=== PATIENT | male | born 1935 | race Caucasian/White ===

== ENCOUNTER → 2016-10-31 | Outpatient (CLI) | payer MEDICARE, OTHER ==
[~2016-10-31] MED LIST: CLOB-49 EX; CLOB0.77 EX; CLOB5CR TOP; FLOM5CAP PO; NEUR100C PO; OMEP20CA3 PO
== END ==
LOC: M WUC 09:20
PROVIDERS: ATTEND Radiology Radiation Oncology
DX: C61 Malignant neoplasm of prostate (principal); I25.10 Atherosclerotic heart disease of native coronary artery without angina pectoris; E78.5 Hyperlipidemia, unspecified; R42 Dizziness and giddiness

== ENCOUNTER → 2016-10-31 | Outpatient (CLI) | payer MEDICARE, OTHER | LOC: M WUC 09:11 | PROVIDERS: ATTEND Internal Medicine Cardiovascular Disease | DX: I25.10 Atherosclerotic heart disease of native coronary artery without angina pectoris (principal); E78.5 Hyperlipidemia, unspecified; R42 Dizziness and giddiness ==

== ENCOUNTER → 2017-02-23 | Day surgery (SDC) | payer MEDICARE, OTHER ==
[~2017-02-23] VITALS: Ht 175.3 cm; Wt 101.2 kg
[~2017-02-23] MED LIST changes: +ASPI1TAB PO; +ATOR1TAB19 PO; +CARV6.25 PO; +MIDAZOLAM INJ 2 MG/2 ML VIAL (J2250) As Ordered ONE; +MYRB50TA PO; +SUCR1TA PO; +fentaNYL 100 MCG/2 ML INJECTION (J3010) As Ordered ONE
[2017-02-23] MEDS: CEFUROXIME 1MG/0.1ML INTRACAMERAL INJ As Ordered ONE (06:18)
[2017-02-23] MEDS: PROPARACAINE 0.5% OPHTH SOL 15ML OS ONE (07:55)
[2017-02-23] MEDS: PHENYLEPHRINE 2.5% OPHTH SOL 2ML OS ONE (08:00)
[2017-02-23] MEDS: TROPICAMIDE 1% OPHTH SOLN 2ML OS ONE (08:05)
[2017-02-23] MEDS: OFLOXACIN 0.3 % (OCUFLOX) OPTH SOL 5ML OS ONE (08:10)
[2017-02-23] MEDS: LR 500 ML IV ONE (08:18)
[2017-02-23] MEDS: LIDOCAINE 4% INJ 5 ML AMP As Ordered ONE (09:06)
[2017-02-23] MEDS: POVIDONE-IODINE 5% OPHTH PREP SOL 30ML As Ordered ONE (09:08)
[2017-02-23] MEDS: ACETYLCHOLINE OPHTH SOLN 1% 2ML (MIOCHOL-E) As Ordered ONE (09:08)
[2017-02-23] MEDS: BALANCED SALT IRRIGATION SOLUTION 500ML BAG (FOR OR EYE MACHINE) As Ordered ONE (09:08)
[2017-02-23] MEDS: DUOVISC (0.50ML VISCOAT/0.55ML PROVISC) OPHTH KIT As Ordered ONE (09:09)
[2017-02-23] MEDS: LIDOCAINE 0.75%/EPINEPHRINE 0.025% IN BSS 1ML SYR INTRACAMERAL (OR ONLY) As Ordered ONE (09:09)
[2017-02-23 10:05] VITALS: BP 157/74
--- NOTE | 2017-02-24 22:47 | RO ---
DATE OF PROCEDURE: 02/23/2017 PREOPERATIVE DIAGNOSIS: Visually significant nuclear sclerotic cataract, left eye. POSTOPERATIVE DIAGNOSIS: Visually significant nuclear sclerotic cataract, left eye. PROCEDURE: Cataract extraction with use of phacoemulsification, and placement of intraocular lens, AU00T0, 20.5 diopters, left eye. SURGEON: Shekhar Mahan DO DAIRY EQUIPMENT MECHANIC: ANESTHESIA: Local with monitored anesthesia care (MAC). COMPLICATIONS: None. POSTOPERATIVE CONDITION: Stable. INDICATION FOR SURGERY: Blurred vision left eye affecting patient's activities of daily living. DESCRIPTION OF PROCEDURE: The patient was seen in the preoperative area and properly identified. The correct operative eye was identified and marked. Attention was turned to that eye. The patient received topical antibiotics in the preoperative area. The patient then received topical dilating drops consisting of Tropicamide and Phenylephrine. The patient was then transferred to the operating room. The correct side was re-identified. The patient received topical anesthetics and antibiotics on the surface of the eye. The eye was prepped and draped in a sterile fashion. The upper and lower eyelids were isolated with Tegaderm tape, and the lids were held open with an adjustable speculum. Using a sideport blade, a paracentesis incision was made. Intraocular preservative-free lidocaine was then injected into the anterior chamber. Viscoelastic was then injected into the anterior chamber through the paracentesis. Using a 2.6 mm sharp-tipped keratome, the anterior chamber was entered via a temporal clear corneal incision. A continuous curvilinear capsulorrhexis was created with the aid of a 26g cystotome and Utrata forceps. Hydrodissection was performed with balanced salt solution (BSS) on a blunt cannula until the nucleus was freely mobile. The crystalline lens was phacoemulsified and aspirated. Additional cohesive viscoelastic was placed into the capsular bag to deepen it. An AU00T0, 20.5 diopter lens was placed into the capsular bag and confirmed by visualizing the continuous curvilinear capsulorrhexis. Additional irrigation and aspiration was used to remove cortical material and remaining viscoelastic. The clear corneal incision was hydrated with BSS on a blunt cannula. The lens was well positioned. The incisions were then tested for leaks and found to be negative. The eye was then palpated for appropriate pressure and adjusted accordingly with BSS. The eyelid speculum was carefully removed. A shield was placed over the eye. The patient tolerated the procedure well and was discharged to the recovery unit in a stable condition. OLYA
== END | disposition home or self-care (01) ==
LOC: M SDC 07:28
PROVIDERS: ATTEND Ophthalmology
DX: H25.12 Age-related nuclear cataract, left eye (principal); R07.9 Chest pain, unspecified; E78.5 Hyperlipidemia, unspecified; K82.9 Disease of gallbladder, unspecified; K44.9 Diaphragmatic hernia without obstruction or gangrene; K21.9 Gastro-esophageal reflux disease without esophagitis; R29.898 Other symptoms and signs involving the musculoskeletal system; M12.9 Arthropathy, unspecified; M54.9 Dorsalgia, unspecified; H91.91 Unspecified hearing loss, right ear; R06.83 Snoring; R06.09 Other forms of dyspnea; C61 Malignant neoplasm of prostate; K57.30 Diverticulosis of large intestine without perforation or abscess without bleeding; I25.10 Atherosclerotic heart disease of native coronary artery without angina pectoris; K63.5 Polyp of colon; Z88.0 Allergy status to penicillin; Z88.2 Allergy status to sulfonamides; Z79.899 Other long term (current) drug therapy; Z79.82 Long term (current) use of aspirin; Z92.3 Personal history of irradiation
CPT/HCPCS: 66984; J2250; J3010; V2632

== ENCOUNTER → 2017-03-27 | Outpatient (REF) | payer MEDICARE, OTHER ==
[~2017-03-27] MED LIST changes: -MIDAZOLAM INJ 2 MG/2 ML VIAL (J2250) As Ordered ONE; -fentaNYL 100 MCG/2 ML INJECTION (J3010) As Ordered ONE
== END ==
LOC: M LAB REF 17:42
PROVIDERS: ATTEND Surgery
DX: L57.8 Other skin changes due to chronic exposure to nonionizing radiation (principal)

== ENCOUNTER 2017-03-30 11:15 | Day surgery (SDC) | payer MEDICARE, OTHER ==
[~2017-03-30 11:15] MED LIST changes: +ACETYLCHOLINE OPHTH SOLN 1% 2ML (MIOCHOL-E) As Ordered ONE; +BALANCED SALT IRRIGATION SOLUTION 500ML BAG (FOR OR EYE MACHINE) As Ordered ONE; +DUOVISC (0.50ML VISCOAT/0.55ML PROVISC) OPHTH KIT As Ordered ONE; +LIDOCAINE 0.75%/EPINEPHRINE 0.025% IN BSS 1ML SYR INTRACAMERAL (OR ONLY) As Ordered ONE; +MIDAZOLAM INJ 2 MG/2 ML VIAL (J2250) As Ordered ONE; +OFLOXACIN 0.3 % (OCUFLOX) OPTH SOL 5ML OD ONE; +PHENYLEPHRINE 2.5% OPHTH SOL 2ML OD ONE; +POVIDONE-IODINE 5% OPHTH PREP SOL 30ML As Ordered ONE; +PROPARACAINE 0.5% OPHTH SOL 15ML OD ONE; +TROPICAMIDE 1% OPHTH SOLN 2ML OD ONE; +fentaNYL 100 MCG/2 ML INJECTION (J3010) As Ordered ONE
[2017-03-30] MEDS ORDERED: LR 1,000 ML IV SCH (11:30)
[2017-03-30] MEDS ORDERED: hydrALAZINE INJ 20 MG/ML VIAL As Ordered ONE (13:34)
[2017-03-30 13:59] VITALS: BP 159/77
[2017-03-30] MEDS ORDERED: CEFUROXIME 1MG/0.1ML INTRACAMERAL INJ As Ordered ONE (14:28)
--- NOTE | 2017-03-31 07:40 | RO ---
DATE OF PROCEDURE: 03/30/2017 PREOPERATIVE DIAGNOSIS: Visually significant nuclear sclerotic cataract right eye. POSTOPERATIVE DIAGNOSIS: Visually significant nuclear sclerotic cataract right eye. PROCEDURE: Cataract extraction with use of phacoemulsification, and placement of intraocular lens, AU00T0, 20.0 diopter. SURGEON: Shekhar Mahan DO TRANSFORMATION MANAGER: ANESTHESIA: Local with monitored anesthesia care (MAC). COMPLICATIONS: None. POSTOPERATIVE CONDITION: Stable. INDICATION FOR SURGERY: Blurred vision right eye affecting patient's activities of daily living. DESCRIPTION OF PROCEDURE: The patient was seen in the preoperative area and properly identified. The correct operative eye was identified and marked. Attention was turned to that eye. The patient received topical antibiotics in the preoperative area. The patient then received topical dilating drops consisting of Tropicamide and Phenylephrine. The patient was then transferred to the operating room. The correct side was re-identified. The patient received topical anesthetics and antibiotics on the surface of the eye. The eye was prepped and draped in a sterile fashion. The upper and lower eyelids were isolated with Tegaderm tape, and the lids were held open with an adjustable speculum. Using a sideport blade, a paracentesis incision was made. Intraocular preservative-free lidocaine was then injected into the anterior chamber. Viscoelastic was then injected into the anterior chamber through the paracentesis. Using a 2.65 mm sharp-tipped keratome, the anterior chamber was entered via a temporal clear corneal incision. A continuous curvilinear capsulorrhexis was created with the aid of a 26g cystotome and utrata forceps. Hydrodissection was performed with balanced salt solution (BSS) on a blunt cannula until the nucleus was freely mobile. The crystalline lens was phacoemulsified and aspirated. Additional cohesive viscoelastic was placed into the capsular bag to deepen it. An AU00T0, 20.0 diopter lens was placed into the capsular bag and confirmed by visualizing the continuous curvilinear capsulorrhexis. Additional irrigation and aspiration was used to remove cortical material and remaining viscoelastic. The clear corneal incision was hydrated with BSS on a blunt cannula. The lens was well positioned. The incisions were then tested for leaks and found to be negative. The eye was then palpated for appropriate pressure and adjusted accordingly with BSS. The eyelid speculum was carefully removed. A shield was placed over the eye. The patient tolerated the procedure well and was discharged to the recovery unit in a stable condition. OLYA
== END 2017-03-30 14:26 | disposition home or self-care (01) ==
LOC: M SDC 11:15
PROVIDERS: ATTEND Ophthalmology
DX: H25.11 Age-related nuclear cataract, right eye (principal); I10 Essential (primary) hypertension; E78.5 Hyperlipidemia, unspecified; K21.9 Gastro-esophageal reflux disease without esophagitis; K44.9 Diaphragmatic hernia without obstruction or gangrene; Z92.3 Personal history of irradiation; Z85.46 Personal history of malignant neoplasm of prostate; Z88.0 Allergy status to penicillin; Z88.2 Allergy status to sulfonamides; Z79.82 Long term (current) use of aspirin; Z79.899 Other long term (current) drug therapy
CPT/HCPCS: 66984; J2250; J3010; V2632

== ENCOUNTER → 2017-11-20 | Outpatient (CLI) | payer MEDICARE, OTHER ==
[2017-11-20 19:27] LABS: PROSTATIC SPECIFIC AG MONITOR 0.38 NG/ML (< 4.0)
== END ==
LOC: M WUC 13:28
DX: C61 Malignant neoplasm of prostate (principal)
CPT/HCPCS: 84153

== ENCOUNTER → 2017-12-01 | Outpatient (CLI) | payer MEDICARE, OTHER | LOC: M ONCR 12:54 | DX: C61 Malignant neoplasm of prostate (principal) | CPT/HCPCS: G0463 ==

== ENCOUNTER → 2018-03-06 | Outpatient (CLI) | payer MEDICARE, OTHER ==
[2018-03-06 13:18] LABS: BASO % 0.7 % (0.0-1.0); EOS # 0.1 10^3/uL (0.0-0.50); EOS % 2.2 % (0.0-3.0); HEMATOCRIT 38.6 % (42.0-52.0); HEMOGLOBIN 12.5 g/dl (13.5-17.5); IMMATURE GRANULOCYTE % 0.4 % (0-3.0); LYMPH # 1.7 10^3/uL (1.5-4.5); LYMPH % 30.5 % (24.0-44.0); MEAN CORPUSCULAR HEMOGLOBIN 28.7 pg (27.0-33.0); MEAN CORPUSCULAR HGB CONC 32.4 g/dl (32.0-36.5); MEAN CORPUSCULAR VOLUME 88.5 fl (80.0-96.0); MONO # 0.6 10^3/uL (0.0-0.8); MONO % 9.9 % (0.0-5.0); NEUTROPHILS # 3.1 10^3/uL (1.8-7.7); NEUTROPHILS % 56.3 % (36.0-66.0); PLATELET COUNT, AUTOMATED 239 10^3/uL (150-450); RED BLOOD COUNT 4.36 10^6/uL (4.30-6.10); RED CELL DISTRIBUTION WIDTH 13.7 % (11.5-14.5); WHITE BLOOD COUNT 5.6 10^3/uL (4.0-10.0)
[2018-03-06 13:37] LABS: ALBUMIN 3.5 GM/DL (3.2-5.2); ALBUMIN/GLOBULIN RATIO 1.03 (1.00-1.93); ALKALINE PHOSPHATASE 22 U/L (45-117); ALT/SGPT 20 U/L (12-78); ANION GAP 8 MEQ/L (8-16); AST/SGOT 12 U/L (7-37); BILIRUBIN,TOTAL 0.5 MG/DL (0.2-1.0); BLOOD UREA NITROGEN 19 MG/DL (7-18); CALCIUM LEVEL 8.7 MG/DL (8.8-10.2); CARBON DIOXIDE LEVEL 27 MEQ/L (21-32); CHLORIDE LEVEL 104 MEQ/L (98-107); CHOLESTEROL LEVEL 122 MG/DL (<200); CHOLESTEROL RISK RATIO 2.595 (<5); CREATININE FOR GFR 1.22 MG/DL (0.70-1.30); FERRITIN 14 NG/ML (26-388); GLOMERULAR FILTRATION RATE > 60.0 (>35); GLUCOSE, FASTING 89 MG/DL (70-100); HDL CHOLESTEROL 47 MG/DL (>40); IRON (FE) 62 UG/DL (65-175); MAGNESIUM LEVEL 2.1 MG/DL (1.8-2.4); NON-HDL-C 75 MG/DL; PERCENT SATURATION 19.8 % (19.7-50.0); POTASSIUM SERUM 4.2 MEQ/L (3.5-5.1); SODIUM LEVEL 139 MEQ/L (136-145); TOTAL IRON BINDING CAPACITY 313 UG/DL (250-450); TOTAL PROTEIN 6.9 GM/DL (6.4-8.2); TRIGLYCERIDES LEVEL 55 MG/DL (<150)
[2018-03-06 13:58] LABS: FOLATE 10.8 NG/ML; VITAMIN B12 LEVEL 370 PG/ML
== END ==
LOC: M WUC 10:11
DX: D64.9 Anemia, unspecified (principal); I25.10 Atherosclerotic heart disease of native coronary artery without angina pectoris; K57.30 Diverticulosis of large intestine without perforation or abscess without bleeding; R42 Dizziness and giddiness; E78.5 Hyperlipidemia, unspecified; E87.1 Hypo-osmolality and hyponatremia
CPT/HCPCS: 82746

== ENCOUNTER → 2018-11-26 | Outpatient (CLI) | payer MEDICARE, OTHER ==
[~2018-11-26] MED LIST changes: -ACETYLCHOLINE OPHTH SOLN 1% 2ML (MIOCHOL-E) As Ordered ONE; -ASPI1TAB PO; +ASPI81TA26 PO; -BALANCED SALT IRRIGATION SOLUTION 500ML BAG (FOR OR EYE MACHINE) As Ordered ONE; -DUOVISC (0.50ML VISCOAT/0.55ML PROVISC) OPHTH KIT As Ordered ONE; +FLOM0.4C39 PO; -FLOM5CAP PO; -LIDOCAINE 0.75%/EPINEPHRINE 0.025% IN BSS 1ML SYR INTRACAMERAL (OR ONLY) As Ordered ONE; -MIDAZOLAM INJ 2 MG/2 ML VIAL (J2250) As Ordered ONE; -OFLOXACIN 0.3 % (OCUFLOX) OPTH SOL 5ML OD ONE; -PHENYLEPHRINE 2.5% OPHTH SOL 2ML OD ONE; -POVIDONE-IODINE 5% OPHTH PREP SOL 30ML As Ordered ONE; -PROPARACAINE 0.5% OPHTH SOL 15ML OD ONE; -TROPICAMIDE 1% OPHTH SOLN 2ML OD ONE; -fentaNYL 100 MCG/2 ML INJECTION (J3010) As Ordered ONE
== END ==
LOC: M WUC 13:24
PROVIDERS: ATTEND Radiology Radiation Oncology
DX: C61 Malignant neoplasm of prostate (principal)

== ENCOUNTER → 2018-12-05 | Outpatient (CLI) | payer MEDICARE, OTHER ==
--- NOTE | 2018-12-06 06:48 | RADONC ---
RADIATION ONCOLOGY FOLLOWUP NOTE DATE: 12/05/2018 CHART #: [id number] DIAGNOSIS: Prostate cancer. STAGE: II, [id number]. ECOG PERFORMANCE STATUS: 0. FOLLOWUP NOTE: Mr. Cornelius is a pleasant 83-year-old man with a diagnosis of a stage II adenocarcinoma of the prostate, [place] score 7 (3+4). He presents almost 10 years status post completion of external beam radiotherapy and denies any problems related to his disease or to his treatments. REVIEW OF SYSTEMS: His and he claim that he has severe itching in the groin bilaterally. He has had this issue for several years and he usually puts powder in the groin area and it clears up. He denies that there is any erythema or desquamation in the groin area, but notices itching and some stinging as well. Otherwise he denies nausea, vomiting, diarrhea, dysuria, hematuria or blood per rectum. His energy level is unchanged. He also denies anxiety, depression, headaches, anorexia, weight loss, visual disturbances, chest pain or neurologic issues. PHYSICAL EXAMINATION: Reveals a well-developed, well-nourished male in no acute distress. Lymphatics: No palpable peripheral lymphadenopathy is appreciated. The lungs are clear to auscultation and percussion. Heart: Regular without murmurs. Abdomen: Without evidence of hepatomegaly, masses, deep abdominal tenderness. Extremities: Without cyanosis, clubbing or edema. Examination of the genital area reveals some increased moisture in the groin area and periscrotal area bilaterally, but no signs to suggest any fungal related infection, i.e., no evidence of erythema or focal desquamation. Neurologic: Examination unchanged. IMPRESSION: No clinical evidence of disease. PLAN: He should be followed at this point by his family care physician. We note that his most recent PSA dated 11/27/2018 was only 0.30, which is virtually stable. Thank you for allowing us the opportunity of participation in the joint followup care of this very fine gentleman. cc: MD Digna Thompson,
== END ==
LOC: M ONCR 12:39
PROVIDERS: ATTEND Radiology Radiation Oncology
DX: Z08 Encounter for follow-up examination after completed treatment for malignant neoplasm (principal); Z92.3 Personal history of irradiation; Z85.46 Personal history of malignant neoplasm of prostate

== ENCOUNTER → 2021-01-13 | Outpatient (CLI) | payer MEDICARE, OTHER, BC ==
[~2021-01-13] MED LIST changes: +OMEP1CAP73 PO; -OMEP20CA3 PO
== END ==
LOC: M WUC 14:23
PROVIDERS: ATTEND Nurse Practitioner Family
DX: Z85.46 Personal history of malignant neoplasm of prostate (principal)
CPT/HCPCS: 36415; 51798; 84153; G0463

== ENCOUNTER 2021-12-12 11:40 | Emergency (ER) | payer MEDICARE, BC ==
[~2021-12-12] VITALS: Ht 175.3 cm; Wt 99.0 kg
[~2021-12-12 11:40] MED LIST changes: -CLOB0.77 EX; +CLOB1SPR EX
[2021-12-12 13:24] LABS: BASO % 0.6 % (0.0-1.0); EOS # 0.2 10^3/uL (0.0-0.5); EOS % 2.6 % (0.0-3.0); HEMATOCRIT 40.6 % (42.0-52.0); HEMOGLOBIN 13.6 g/dl (13.5-17.5); LYMPH # 1.6 10^3/uL (1.5-5.0); LYMPH % 21.9 % (24.0-44.0); MEAN CORPUSCULAR HEMOGLOBIN 30.4 pg (27.0-33.0); MEAN CORPUSCULAR HGB CONC 33.5 g/dl (32.0-36.5); MEAN CORPUSCULAR VOLUME 90.6 fl (80.0-96.0); MONO # 0.7 10^3/uL (0.0-0.8); MONO % 9.7 % (2.0-8.0); NEUTROPHILS # 4.7 10^3/uL (1.5-8.5); NEUTROPHILS % 65.1 % (36.0-66.0); PLATELET COUNT, AUTOMATED 249 10^3/uL (150-450); RED BLOOD COUNT 4.48 10^6/uL (4.30-6.10); WHITE BLOOD COUNT 7.2 10^3/uL (4.0-10.0)
[2021-12-12 13:41] LABS: INR 0.95; PARTIAL THROMBOPLASTIN TIME 24.1 SECONDS (25.9-37.0); PROTHROMBIN TIME 13.1 SECONDS (12.7-14.5)
[2021-12-12 14:02] LABS: BLOOD UREA NITROGEN 21 MG/DL (7-18); CALCIUM LEVEL 9.6 MG/DL (8.8-10.2); CARBON DIOXIDE LEVEL 26 MEQ/L (21-32); CHLORIDE LEVEL 105 MEQ/L (98-107); CREATININE FOR GFR 1.15 MG/DL (0.70-1.30); FREE T4 1.08 NG/DL (0.76-1.46); GLOMERULAR FILTRATION RATE > 60.0 (>35); GLUCOSE, FASTING 77 MG/DL (70-100); POTASSIUM SERUM 5.9 MEQ/L (3.5-5.1); SODIUM LEVEL 136 MEQ/L (136-145)
[2021-12-12 14:28] LABS: CK-MB VALUE MASS 1.8 NG/ML (<3.6); MB/CK RELATIVE INDEX 1.02 (< OR =4)
[2021-12-12] MEDS ORDERED: TAMS1CAP17 PO (14:30)
[2021-12-12] MEDS ORDERED: CLOP75TA2 PO (14:30)
[2021-12-12 16:26] LABS: CK-MB VALUE MASS 2.8 NG/ML (<3.6); MB/CK RELATIVE INDEX 5.71 (< OR =4)
[2021-12-12] MEDS ORDERED: predniSONE 20 MG TAB PO ONE (18:25)
[2021-12-12] MEDS ORDERED: PRED20TA PO (18:46)
[2021-12-12] MEDS ORDERED: [UNRECOGNIZED DRUG - REMARK] (18:52)
[2021-12-12 19:04] VITALS: BP 189/88
== END 2021-12-12 19:05 | disposition home or self-care (01) ==
LOC: M ED 11:40
DX: H91.92 Unspecified hearing loss, left ear (principal); I44.7 Left bundle-branch block, unspecified; Z86.73 Personal history of transient ischemic attack (TIA), and cerebral infarction without residual deficits; Z88.2 Allergy status to sulfonamides; Z79.899 Other long term (current) drug therapy
CPT/HCPCS: 70450; 70480; 70553; 71045; 80048; 82550; 82553; 84439; 84443; 84484; 85025; 85610; 85652; 85730; 86140; 86780; 86850; 86900; 86901; 93005; 93041; 94760; 99284; J7512

== ENCOUNTER → 2022-09-28 | Outpatient (CLI) | payer MEDICARE, BC ==
[~2022-09-28] MED LIST changes: +CLOP75TA2 PO; +PRED20TA PO; +TAMS1CAP17 PO; +[UNRECOGNIZED DRUG - REMARK]
[2022-09-28 13:18] LABS: BLOOD UREA NITROGEN 19 MG/DL (9-23); CREATININE FOR GFR 1.11 MG/DL (0.70-1.30); GLOMERULAR FILTRATION RATE > 60.0 (>35)
== END ==
LOC: M LAB 11:59
PROVIDERS: ATTEND Surgery
DX: Z01.810 Encounter for preprocedural cardiovascular examination (principal)

== ENCOUNTER → 2022-10-07 | Outpatient (CLI) | payer MEDICARE, BC ==
[~2022-10-07] MED LIST changes: +GASTROGRAFIN SOLUTION 30ML As Ordered ONE; +ISOVUE-370 76% 100ML VIAL As Ordered ONE
== END ==
LOC: M RAD 11:37
PROVIDERS: ATTEND Surgery
DX: R10.84 Generalized abdominal pain (principal); K76.0 Fatty (change of) liver, not elsewhere classified
CPT/HCPCS: 74178; Q9963; Q9967

== ENCOUNTER → 2022-11-01 | Outpatient (CLI) | payer MEDICARE, BC ==
[~2022-11-01] MED LIST changes: +E-Z-GAS II EFFERVESCENT PACKET (SODIUM BICARB./CITRIC ACID/SIMETHICONE) As Ordered ONE; +E-Z-HD 98% w/w 340GM SUSP BTL As Ordered ONE; +E-Z-PAQUE 96% w/w SUSP 176GM BTL As Ordered ONE; -GASTROGRAFIN SOLUTION 30ML As Ordered ONE; -ISOVUE-370 76% 100ML VIAL As Ordered ONE
== END ==
LOC: M RAD 08:57
PROVIDERS: ATTEND Surgery
DX: K80.20 Calculus of gallbladder without cholecystitis without obstruction (principal); K21.9 Gastro-esophageal reflux disease without esophagitis; R10.84 Generalized abdominal pain

== ENCOUNTER 2022-12-15 06:05 | Inpatient (IN) | payer MEDICARE, BC ==
[2022-12-15] VITALS (9 sets, daily range): BP systolic 97–173; BP diastolic 78–99
[~2022-12-15] VITALS: Ht 175.3 cm; Wt 90.7 kg
[~2022-12-15 06:05] MED LIST changes: +CelecoXIB 400 MG CAP PO ONE; -E-Z-GAS II EFFERVESCENT PACKET (SODIUM BICARB./CITRIC ACID/SIMETHICONE) As Ordered ONE; -E-Z-HD 98% w/w 340GM SUSP BTL As Ordered ONE; -E-Z-PAQUE 96% w/w SUSP 176GM BTL As Ordered ONE; +HYDR12.55 PO; +SUCR1SS PO
[2022-12-15] MEDS ORDERED: LR 1,000 ML IV SCH ×2 (06:50→14:55)
[2022-12-15] MEDS ORDERED: LevoFLOXacin IV 750 MG in IV 1 EA IV ONE (07:00)
[2022-12-15] MEDS ORDERED: ACETAMINOPHEN 1000MG 100ML IV BAG As Ordered ONE (07:17)
[2022-12-15] MEDS ORDERED: KETOROLAC 60MG 2ML VIAL As Ordered ONE (07:17)
[2022-12-15] MEDS ORDERED: SUGAMMADEX SODIUM 500 MG/5 ML VIAL (BRIDION) As Ordered ONE (07:17)
[2022-12-15] MEDS ORDERED: propofoL 200 MG/20 ML VIAL As Ordered ONE (07:17)
[2022-12-15] MEDS ORDERED: ONDANSETRON 4MG 2ML VIAL As Ordered ONE (07:17)
[2022-12-15] MEDS ORDERED: LIDOCAINE 2% 100MG/5ML SDV (FOR ANES.) As Ordered ONE (07:17)
[2022-12-15] MEDS ORDERED: ROCURONIUM BROMIDE 50MG/5ML VIAL As Ordered ONE ×3 (07:17→12:07)
[2022-12-15] MEDS ORDERED: fentaNYL 250 MCG/5 ML INJECTION As Ordered ONE (07:18)
[2022-12-15] MEDS ORDERED: LIDOCAINE 1% SDV 30ML VIAL As Ordered ONE (07:25)
[2022-12-15] MEDS ORDERED: BUPIVACAINE HCL 0.25% 30ML VIAL As Ordered ONE (07:26)
[2022-12-15] MEDS ORDERED: HEPARIN SOD (PORCINE) 5000UNITS/ML 1ML VIAL/SYRINGE As Ordered ONE (07:47)
[2022-12-15] MEDS ORDERED: HEPARIN SOD (PORCINE) 5000UNITS/ML 1ML VIAL/SYRINGE SQ ONE (08:05)
[2022-12-15] MEDS ORDERED: LABETALOL 100MG/20ML VIAL As Ordered ONE (08:42)
[2022-12-15] MEDS ORDERED: oxyCODONE 5MG TAB PO PRN (14:55)
[2022-12-15] MEDS ORDERED: ONDANSETRON 4MG 2ML VIAL IV PRN (14:55)
[2022-12-15] MEDS ORDERED: HYDROMORPHONE HCL 0.5 MG/ 0.5 ML SYRINGE IV PRN (14:55)
[2022-12-15] MEDS ORDERED: fentaNYL 100 MCG/2 ML INJECTION IV PRN (14:55)
[2022-12-15] MEDS ORDERED: PROMETHAZINE 25MG/ML 1ML VIAL IV PRN (15:00)
[2022-12-15] MEDS ORDERED: ACETAMINOPHEN TAB 650MG DOSE (2X325MG) PO PRN (15:00)
[2022-12-15] MEDS: LR 1,000 ML IV SCH ×2 (16:44→23:28)
[2022-12-15] MEDS ORDERED: KETOROLAC 30 MG/ML 1ML VIAL IV PRN (17:00)
[2022-12-15] MEDS: ONDANSETRON 4MG 2ML VIAL IV SCH (20:17)
[2022-12-15] MEDS: POLYVINYL ALCOHOL OPHTH SOLN 15ML (LIQUITEARS) OD PRN (20:55)
[2022-12-16] VITALS (7 sets, daily range): BP systolic 125–159; BP diastolic 75–93
[2022-12-16] MEDS: MORPHINE 2 MG/ML 1ML VIAL IV PRN ×2 (00:40→05:33)
[2022-12-16] MEDS: ONDANSETRON 4MG 2ML VIAL IV SCH ×4 (03:31→20:33)
[2022-12-16] MEDS ORDERED: SUCR1TAB56 PO (06:31)
[2022-12-16] MEDS ORDERED: CARV3.12 PO (06:31)
[2022-12-16] MEDS ORDERED: HOME MED LIST COMPLETE! XX SCH (06:35)
[2022-12-16 07:03] LABS: BASO % 0.1 % (0.0-1.0); HEMOGLOBIN 11.2 g/dl (13.5-17.5); LYMPH # 0.8 10^3/uL (1.5-5.0); LYMPH % 7.7 % (24.0-44.0); MEAN CORPUSCULAR HGB CONC 33.9 g/dl (32.0-36.5); MEAN CORPUSCULAR VOLUME 88.5 fl (80.0-96.0); MONO # 0.9 10^3/uL (0.0-0.8); MONO % 9.2 % (2.0-8.0); NEUTROPHILS # 8.2 10^3/uL (1.5-8.5); NEUTROPHILS % 82.6 % (36.0-66.0); PLATELET COUNT, AUTOMATED 221 10^3/uL (150-450); RED BLOOD COUNT 3.73 10^6/uL (4.30-6.10); WHITE BLOOD COUNT 9.9 10^3/uL (4.0-10.0)
[2022-12-16 07:28] LABS: BLOOD UREA NITROGEN 31 MG/DL (9-23); CALCIUM LEVEL 8.1 MG/DL (8.3-10.6); CARBON DIOXIDE LEVEL 27 MMOL/L (20-31); CHLORIDE LEVEL 99 MMOL/L (98-107); CREATININE FOR GFR 1.12 MG/DL (0.70-1.30); GLOMERULAR FILTRATION RATE > 60.0 (>35); GLUCOSE, FASTING 123 MG/DL (74-106); POTASSIUM SERUM 3.9 MMOL/L (3.5-5.1); SODIUM LEVEL 133 MMOL/L (136-145)
[2022-12-16] MEDS: hydroCHLOROthiazide 12.5 MG CAPSULE PO SCH (08:15)
[2022-12-16] MEDS: ENOXAPARIN 40MG/0.4ML SYRINGE (J1650 PER 10MG) SC SCH (08:16)
[2022-12-16] MEDS: PANTOPRAZOLE 40MG VIAL IV SCH (08:16)
[2022-12-16] MEDS ORDERED: E-Z-PAQUE 96% w/w SUSP 176GM BTL As Ordered ONE (08:55)
[2022-12-16] MEDS ORDERED: E-Z-GAS II EFFERVESCENT PACKET (SODIUM BICARB./CITRIC ACID/SIMETHICONE) As Ordered ONE (08:55)
[2022-12-16] MEDS ORDERED: E-Z-HD 98% w/w 340GM SUSP BTL As Ordered ONE (08:55)
[2022-12-16] MEDS ORDERED: PERCOCET 5MG/325MG TAB PO PRN (13:50)
[2022-12-16] MEDS: ALVIMOPAN 12 MG CAPSULE (ENTEREG) PO SCH ×2 (14:01→20:33)
[2022-12-16] MEDS: LR 1,000 ML IV SCH (16:00)
[2022-12-16] MEDS: PERCOCET 5MG/325MG TAB PO PRN (20:32)
[2022-12-16] MEDS: CARVedilol 3.125 MG TAB PO SCH (20:33)
[2022-12-16] MEDS: TAMSULOSIN 0.4 MG CAP PO SCH (20:33)
[2022-12-16] MEDS: ATORVASTATIN 10 MG TAB PO SCH (20:33)
[2022-12-16] MEDS: SODIUM CHLORIDE NASAL 0.65% SPRAY BTL (OCEAN) PRN (22:47)
[2022-12-17] MEDS: ONDANSETRON 4MG 2ML VIAL IV SCH ×3 (03:32→15:22)
[2022-12-17] MEDS: PERCOCET 5MG/325MG TAB PO PRN ×4 (03:33→20:20)
[2022-12-17 06:00] VITALS: BP 143/83
[2022-12-17] MEDS: hydroCHLOROthiazide 12.5 MG CAPSULE PO SCH (08:13)
[2022-12-17] MEDS: ALVIMOPAN 12 MG CAPSULE (ENTEREG) PO SCH ×2 (08:13→20:17)
[2022-12-17] MEDS: PANTOPRAZOLE 40MG VIAL IV SCH (08:13)
[2022-12-17] MEDS: ENOXAPARIN 40MG/0.4ML SYRINGE (J1650 PER 10MG) SC SCH (08:14)
[2022-12-17 14:42] VITALS: BP 146/79
[2022-12-17 20:16] VITALS: BP 164/80
[2022-12-17] MEDS: TAMSULOSIN 0.4 MG CAP PO SCH (20:17)
[2022-12-17] MEDS: ATORVASTATIN 10 MG TAB PO SCH (20:17)
[2022-12-17] MEDS: CARVedilol 3.125 MG TAB PO SCH (20:19)
[2022-12-17] MEDS: SODIUM CHLORIDE NASAL 0.65% SPRAY BTL (OCEAN) PRN (20:21)
[2022-12-17] MEDS: POLYVINYL ALCOHOL OPHTH SOLN 15ML (LIQUITEARS) OD PRN (20:24)
[2022-12-18 05:59] VITALS: BP 136/63
[2022-12-18] MEDS: PANTOPRAZOLE 40MG VIAL IV SCH (08:42)
[2022-12-18] MEDS: ALVIMOPAN 12 MG CAPSULE (ENTEREG) PO SCH ×2 (08:42→20:39)
[2022-12-18] MEDS: ENOXAPARIN 40MG/0.4ML SYRINGE (J1650 PER 10MG) SC SCH (08:42)
[2022-12-18] MEDS: hydroCHLOROthiazide 12.5 MG CAPSULE PO SCH (08:42)
[2022-12-18] MEDS: SENOKOT S TAB PO SCH ×2 (08:42→20:39)
[2022-12-18] MEDS: PERCOCET 5MG/325MG TAB PO PRN ×2 (13:20→20:40)
[2022-12-18 14:00] VITALS: BP 123/67
[2022-12-18] MEDS: ATORVASTATIN 10 MG TAB PO SCH (20:39)
[2022-12-18] MEDS: TAMSULOSIN 0.4 MG CAP PO SCH (20:39)
[2022-12-18] MEDS: CARVedilol 3.125 MG TAB PO SCH (20:42)
[2022-12-18 22:00] VITALS: BP 139/77
[2022-12-19 05:28] VITALS: BP 140/66
[2022-12-19] MEDS: MIRALAX *UNIT DOSE* 17GM PACKET PO SCH (08:53)
[2022-12-19] MEDS: PANTOPRAZOLE 40MG VIAL IV SCH (08:53)
[2022-12-19] MEDS: SENOKOT S TAB PO SCH ×2 (08:53→21:01)
[2022-12-19] MEDS: ENOXAPARIN 40MG/0.4ML SYRINGE (J1650 PER 10MG) SC SCH (08:53)
[2022-12-19] MEDS: hydroCHLOROthiazide 12.5 MG CAPSULE PO SCH (08:53)
[2022-12-19] MEDS: ALVIMOPAN 12 MG CAPSULE (ENTEREG) PO SCH ×2 (09:05→21:01)
[2022-12-19] MEDS: PERCOCET 5MG/325MG TAB PO PRN ×2 (09:06→21:10)
[2022-12-19 14:00] VITALS: BP 139/71
[2022-12-19 20:00] VITALS: BP 148/78
[2022-12-19 21:01] VITALS: BP 159/95
[2022-12-19] MEDS: CARVedilol 3.125 MG TAB PO SCH (21:01)
[2022-12-19] MEDS: TAMSULOSIN 0.4 MG CAP PO SCH (21:01)
[2022-12-19] MEDS: ATORVASTATIN 10 MG TAB PO SCH (21:01)
[2022-12-20 05:41] VITALS: BP 100/67
[2022-12-20] MEDS ORDERED: PANTOPRAZOLE 40MG TAB (PROTONIX) PO SCH (09:00)
[2022-12-20] MEDS: ENOXAPARIN 40MG/0.4ML SYRINGE (J1650 PER 10MG) SC SCH (09:44)
[2022-12-20] MEDS: ALVIMOPAN 12 MG CAPSULE (ENTEREG) PO SCH (09:44)
[2022-12-20] MEDS: MIRALAX *UNIT DOSE* 17GM PACKET PO SCH (09:44)
[2022-12-20] MEDS: SENOKOT S TAB PO SCH (09:44)
[2022-12-20] MEDS: hydroCHLOROthiazide 12.5 MG CAPSULE PO SCH (09:47)
[2022-12-20] MEDS: POLYVINYL ALCOHOL OPHTH SOLN 15ML (LIQUITEARS) OD PRN (09:52)
[2022-12-20] MEDS ORDERED: PERCOCET PO (12:50)
== END 2022-12-20 13:33 | disposition home or self-care (01) | DRG 326 ==
LOC: M OR 06:05 → M MSPAV 16:18
PROVIDERS: ADMIT Surgery; ATTEND Surgery
PROC: 0DV44ZZ Restriction of Esophagogastric Junction, Percutaneous Endoscopic Approach (ICD-10-PCS; 2022-12-15)
PROC: 0DS64ZZ Reposition Stomach, Percutaneous Endoscopic Approach (ICD-10-PCS; 2022-12-15)
PROC: 8E0W4CZ Robotic Assisted Procedure of Trunk Region, Percutaneous Endoscopic Approach (ICD-10-PCS; 2022-12-15)
PROC: 0DU Gastrointestinal System, Supplement (ICD-10-PCS; principal; 2022-12-15 07:30)
DX: K44.0 Diaphragmatic hernia with obstruction, without gangrene (principal); K56.2 Volvulus; R16.0 Hepatomegaly, not elsewhere classified; Z79.899 Other long term (current) drug therapy; I25.10 Atherosclerotic heart disease of native coronary artery without angina pectoris; D50.9 Iron deficiency anemia, unspecified; I44.7 Left bundle-branch block, unspecified; E78.49 Other hyperlipidemia; Z86.73 Personal history of transient ischemic attack (TIA), and cerebral infarction without residual deficits; Z95.2 Presence of prosthetic heart valve; K21.9 Gastro-esophageal reflux disease without esophagitis; I10 Essential (primary) hypertension; Z85.46 Personal history of malignant neoplasm of prostate; Z92.3 Personal history of irradiation

== ENCOUNTER 2022-12-31 20:45 | Inpatient (IN) | payer MEDICARE, BC ==
[~2022-12-31] VITALS: Ht 172.7 cm; Wt 89.2 kg
[~2022-12-31 20:45] MED LIST changes: +CARV3.12 PO; -CelecoXIB 400 MG CAP PO ONE; +PERCOCET PO; +SUCR1TAB56 PO
[2022-12-31 21:43] LABS: BASO % 0.5 % (0.0-1.0); EOS # 0.1 10^3/uL (0.0-0.5); EOS % 0.8 % (0.0-3.0); HEMATOCRIT 31.5 % (42.0-52.0); LYMPH # 1.8 10^3/uL (1.5-5.0); LYMPH % 23.9 % (24.0-44.0); MEAN CORPUSCULAR HGB CONC 34.9 g/dl (32.0-36.5); MEAN CORPUSCULAR VOLUME 85.8 fl (80.0-96.0); MONO # 0.7 10^3/uL (0.0-0.8); MONO % 9.8 % (2.0-8.0); NEUTROPHILS # 4.8 10^3/uL (1.5-8.5); NEUTROPHILS % 64.6 % (36.0-66.0); PLATELET COUNT, AUTOMATED 496 10^3/uL (150-450); RED BLOOD COUNT 3.67 10^6/uL (4.30-6.10); WHITE BLOOD COUNT 7.4 10^3/uL (4.0-10.0)
[2022-12-31 21:56] LABS: INR 1.01; PROTHROMBIN TIME 13.5 SECONDS (12.5-14.5)
[2022-12-31 21:57] LABS: PARTIAL THROMBOPLASTIN TIME 30.3 SECONDS (24.8-34.2)
[2022-12-31 22:09] LABS: LIPASE 28 U/L (12-53)
[2022-12-31 22:12] LABS: ALBUMIN 3.5 G/DL (3.2-5.2); ALKALINE PHOSPHATASE 24 U/L (46-116); ALT/SGPT 21 U/L (7.0-40); AST/SGOT 25 U/L (<34); BILIRUBIN,DIRECT 0.5 MG/DL (<0.4); BILIRUBIN,TOTAL 1.1 MG/DL (0.3-1.2); BLOOD UREA NITROGEN 19 MG/DL (9-23); CALCIUM LEVEL 9.2 MG/DL (8.3-10.6); CARBON DIOXIDE LEVEL 22 MMOL/L (20-31); CHLORIDE LEVEL 88 MMOL/L (98-107); CK-MB VALUE MASS 1.3 NG/ML (<3.6); CREATININE FOR GFR 0.89 MG/DL (0.70-1.30); GLOMERULAR FILTRATION RATE > 60.0 (>35); GLUCOSE, FASTING 80 MG/DL (74-106); POTASSIUM SERUM 3.5 MMOL/L (3.5-5.1); SODIUM LEVEL 122 MMOL/L (136-145); TOTAL PROTEIN 6.6 G/DL (5.7-8.2)
[2022-12-31 22:13] LABS: CPK CREATINE PHOSPHOKINASE 43 U/L (46-171); MB/CK RELATIVE INDEX 3.02 (< OR =4)
[2022-12-31 23:29] LABS: OSMOLALITY SERUM 255 MOSM/KG (280-301)
[2022-12-31 23:36] LABS: FREE T4 1.46 NG/DL (0.89-1.76); THYROID STIMULATING HORMONE 2.895 uIU/ML (0.55-4.78)
[2022-12-31] MEDS ORDERED: NS 500 ML IV SCH (23:40)
[2022-12-31] MEDS ORDERED: ACET-683 PO (23:55)
[2022-12-31] MEDS ORDERED: HOME MED LIST COMPLETE! XX SCH (23:55)
[2023-01-01 00:02] LABS: CREATININE,RANDOM URINE 67.8 MG/DL
[2023-01-01] MEDS ORDERED: OMEPRAZOLE 20MG CAP PO PRN (00:50)
[2023-01-01 02:48] VITALS: BP 160/78
[2023-01-01] MEDS: ACETAMINOPHEN TAB 650MG DOSE (2X325MG) PO PRN (03:02)
[2023-01-01 05:12] LABS: HEMATOCRIT 29.5 % (42.0-52.0); HEMOGLOBIN 9.9 g/dl (13.5-17.5); MEAN CORPUSCULAR HGB CONC 33.6 g/dl (32.0-36.5); MEAN CORPUSCULAR VOLUME 86.5 fl (80.0-96.0); PLATELET COUNT, AUTOMATED 442 10^3/uL (150-450); RED BLOOD COUNT 3.41 10^6/uL (4.30-6.10); WHITE BLOOD COUNT 7.7 10^3/uL (4.0-10.0)
[2023-01-01 05:32] LABS: BLOOD UREA NITROGEN 16 MG/DL (9-23); CALCIUM LEVEL 8.9 MG/DL (8.3-10.6); CARBON DIOXIDE LEVEL 25 MMOL/L (20-31); CHLORIDE LEVEL 90 MMOL/L (98-107); CREATININE FOR GFR 0.91 MG/DL (0.70-1.30); GLOMERULAR FILTRATION RATE > 60.0 (>35); GLUCOSE, FASTING 78 MG/DL (74-106); MAGNESIUM LEVEL 1.8 MG/DL (1.8-2.4); POTASSIUM SERUM 3.4 MMOL/L (3.5-5.1); SODIUM LEVEL 125 MMOL/L (136-145)
[2023-01-01 05:34] LABS: THYROID STIMULATING HORMONE 2.302 uIU/ML (0.55-4.78)
[2023-01-01 06:40] VITALS: BP 141/74
[2023-01-01 08:21] LABS: BLOOD UREA NITROGEN 16 MG/DL (9-23); CALCIUM LEVEL 8.7 MG/DL (8.3-10.6); CARBON DIOXIDE LEVEL 24 MMOL/L (20-31); CHLORIDE LEVEL 89 MMOL/L (98-107); CREATININE FOR GFR 0.87 MG/DL (0.70-1.30); GLOMERULAR FILTRATION RATE > 60.0 (>35); GLUCOSE, FASTING 75 MG/DL (74-106); POTASSIUM SERUM 3.4 MMOL/L (3.5-5.1); SODIUM LEVEL 126 MMOL/L (136-145)
[2023-01-01 08:24] LABS: THYROID STIMULATING HORMONE 1.708 uIU/ML (0.55-4.78)
[2023-01-01 08:29] LABS: OSMOLALITY SERUM 267 MOSM/KG (280-301)
[2023-01-01] MEDS ORDERED: ASPIRIN 81MG ENTERIC TABLET PO SCH (09:00)
[2023-01-01] MEDS ORDERED: HEPARIN SOD (PORCINE) 5000UNITS/ML 1ML VIAL/SYRINGE SC SCH (09:00)
[2023-01-01 10:35] LABS: OSMOLALITY URINE 347 MOSM/KG (50-1400)
[2023-01-01 10:56] LABS: SODIUM,RANDOM URINE 44 MMOL/L
[2023-01-01 13:13] LABS: BLOOD UREA NITROGEN 16 MG/DL (9-23); CALCIUM LEVEL 8.7 MG/DL (8.3-10.6); CARBON DIOXIDE LEVEL 23 MMOL/L (20-31); CHLORIDE LEVEL 90 MMOL/L (98-107); CREATININE FOR GFR 0.83 MG/DL (0.70-1.30); GLOMERULAR FILTRATION RATE > 60.0 (>35); GLUCOSE, FASTING 91 MG/DL (74-106); POTASSIUM SERUM 3.4 MMOL/L (3.5-5.1); SODIUM LEVEL 126 MMOL/L (136-145)
[2023-01-01 14:00] VITALS: BP 135/73
[2023-01-01] MEDS ORDERED: POTASSIUM CHLORIDE 10% LIQ 20MEQ/15ML UDC PO ONE (14:00)
[2023-01-01] MEDS: PANTOPRAZOLE 40MG VIAL IV SCH ×2 (16:11→21:57)
[2023-01-01 19:37] LABS: BLOOD UREA NITROGEN 15 MG/DL (9-23); CALCIUM LEVEL 9.1 MG/DL (8.3-10.6); CARBON DIOXIDE LEVEL 24 MMOL/L (20-31); CHLORIDE LEVEL 91 MMOL/L (98-107); CREATININE FOR GFR 0.86 MG/DL (0.70-1.30); GLOMERULAR FILTRATION RATE > 60.0 (>35); GLUCOSE, FASTING 115 MG/DL (74-106); POTASSIUM SERUM 3.3 MMOL/L (3.5-5.1); SODIUM LEVEL 125 MMOL/L (136-145)
[2023-01-01] MEDS: TAMSULOSIN 0.4 MG CAP PO SCH (21:57)
[2023-01-01] MEDS: ATORVASTATIN 10 MG TAB PO SCH (21:58)
[2023-01-01] MEDS: CARVedilol 3.125 MG TAB PO SCH (21:58)
[2023-01-01 22:00] VITALS: BP 135/71
[2023-01-02 02:05] LABS: BLOOD UREA NITROGEN 13 MG/DL (9-23); CALCIUM LEVEL 8.5 MG/DL (8.3-10.6); CARBON DIOXIDE LEVEL 26 MMOL/L (20-31); CHLORIDE LEVEL 93 MMOL/L (98-107); CREATININE FOR GFR 0.86 MG/DL (0.70-1.30); GLOMERULAR FILTRATION RATE > 60.0 (>35); GLUCOSE, FASTING 105 MG/DL (74-106); POTASSIUM SERUM 3.5 MMOL/L (3.5-5.1); SODIUM LEVEL 126 MMOL/L (136-145)
[2023-01-02 06:34] VITALS: BP 133/70
[2023-01-02 07:56] LABS: BASO % 0.7 % (0.0-1.0); EOS # 0.1 10^3/uL (0.0-0.5); EOS % 1.7 % (0.0-3.0); HEMATOCRIT 30.4 % (42.0-52.0); HEMOGLOBIN 10.2 g/dl (13.5-17.5); LYMPH # 1.2 10^3/uL (1.5-5.0); LYMPH % 19.2 % (24.0-44.0); MEAN CORPUSCULAR HEMOGLOBIN 29.3 pg (27.0-33.0); MEAN CORPUSCULAR HGB CONC 33.6 g/dl (32.0-36.5); MEAN CORPUSCULAR VOLUME 87.4 fl (80.0-96.0); MONO # 0.8 10^3/uL (0.0-0.8); MONO % 13.9 % (2.0-8.0); NEUTROPHILS # 3.9 10^3/uL (1.5-8.5); NEUTROPHILS % 64.3 % (36.0-66.0); PLATELET COUNT, AUTOMATED 440 10^3/uL (150-450); RED BLOOD COUNT 3.48 10^6/uL (4.30-6.10)
[2023-01-02 08:12] LABS: BLOOD UREA NITROGEN 11 MG/DL (9-23); CALCIUM LEVEL 8.6 MG/DL (8.3-10.6); CARBON DIOXIDE LEVEL 27 MMOL/L (20-31); CHLORIDE LEVEL 93 MMOL/L (98-107); CREATININE FOR GFR 0.88 MG/DL (0.70-1.30); GLOMERULAR FILTRATION RATE > 60.0 (>35); GLUCOSE, FASTING 103 MG/DL (74-106); POTASSIUM SERUM 3.2 MMOL/L (3.5-5.1); SODIUM LEVEL 126 MMOL/L (136-145)
[2023-01-02] MEDS ORDERED: E-Z-HD 98% w/w 340GM SUSP BTL As Ordered ONE (08:36)
[2023-01-02] MEDS ORDERED: E-Z-PAQUE 96% w/w SUSP 176GM BTL As Ordered ONE (08:36)
[2023-01-02] MEDS ORDERED: E-Z-GAS II EFFERVESCENT PACKET (SODIUM BICARB./CITRIC ACID/SIMETHICONE) As Ordered ONE (08:36)
[2023-01-02] MEDS: PANTOPRAZOLE 40MG VIAL IV SCH ×2 (09:10→20:58)
[2023-01-02 14:00] VITALS: BP 117/71
[2023-01-02 18:37] LABS: BLOOD UREA NITROGEN 13 MG/DL (9-23); CALCIUM LEVEL 8.8 MG/DL (8.3-10.6); CARBON DIOXIDE LEVEL 24 MMOL/L (20-31); CHLORIDE LEVEL 94 MMOL/L (98-107); CREATININE FOR GFR 0.87 MG/DL (0.70-1.30); GLOMERULAR FILTRATION RATE > 60.0 (>35); GLUCOSE, FASTING 96 MG/DL (74-106); POTASSIUM SERUM 3.6 MMOL/L (3.5-5.1); SODIUM LEVEL 127 MMOL/L (136-145)
[2023-01-02] MEDS: ATORVASTATIN 10 MG TAB PO SCH (20:58)
[2023-01-02] MEDS: TAMSULOSIN 0.4 MG CAP PO SCH (20:58)
[2023-01-02 21:02] VITALS: BP 117/71
[2023-01-02] MEDS: ACETAMINOPHEN TAB 650MG DOSE (2X325MG) PO PRN (21:02)
[2023-01-02] MEDS: CARVedilol 3.125 MG TAB PO SCH (21:02)
[2023-01-02 21:21] VITALS: BP 133/74
[2023-01-03 06:27] VITALS: BP 113/64
[2023-01-03 06:34] LABS: BASO # 0.1 10^3/uL (0.0-0.2); BASO % 0.7 % (0.0-1.0); EOS # 0.1 10^3/uL (0.0-0.5); EOS % 0.9 % (0.0-3.0); HEMATOCRIT 30.2 % (42.0-52.0); HEMOGLOBIN 10.1 g/dl (13.5-17.5); LYMPH # 1.7 10^3/uL (1.5-5.0); MEAN CORPUSCULAR HEMOGLOBIN 29.7 pg (27.0-33.0); MEAN CORPUSCULAR HGB CONC 33.4 g/dl (32.0-36.5); MEAN CORPUSCULAR VOLUME 88.8 fl (80.0-96.0); MONO # 0.7 10^3/uL (0.0-0.8); MONO % 9.3 % (2.0-8.0); NEUTROPHILS # 4.5 10^3/uL (1.5-8.5); NEUTROPHILS % 64.7 % (36.0-66.0); PLATELET COUNT, AUTOMATED 413 10^3/uL (150-450)
[2023-01-03 07:02] LABS: ALBUMIN 2.7 G/DL (3.2-5.2); BLOOD UREA NITROGEN 19 MG/DL (9-23); CALCIUM LEVEL 8.4 MG/DL (8.3-10.6); CARBON DIOXIDE LEVEL 25 MMOL/L (20-31); CHLORIDE LEVEL 95 MMOL/L (98-107); CREATININE FOR GFR 1.04 MG/DL (0.70-1.30); GLOMERULAR FILTRATION RATE > 60.0 (>35); GLUCOSE, FASTING 91 MG/DL (74-106); PHOSPHORUS LEVEL 3.7 MG/DL (2.4-5.1); POTASSIUM SERUM 3.4 MMOL/L (3.5-5.1); SODIUM LEVEL 130 MMOL/L (136-145)
[2023-01-03] MEDS ORDERED: VARIBAR PUDDING 40% w/v 230ML TUBE As Ordered ONE (09:54)
[2023-01-03] MEDS ORDERED: VARIBAR NECTAR 40% w/v 240ML SUSP BTL As Ordered ONE (09:54)
[2023-01-03] MEDS ORDERED: E-Z-PAQUE 96% w/w SUSP 176GM BTL As Ordered ONE (09:54)
[2023-01-03] MEDS ORDERED: BARIUM SULFATE 700 MG TABLET (E-Z-DISK) As Ordered ONE (09:54)
[2023-01-03] MEDS: PANTOPRAZOLE 40MG VIAL IV SCH (10:53)
== END 2023-01-03 13:50 | disposition home or self-care (01) | DRG 392 ==
LOC: M ED 20:45 → M ED INP 23:39 → M MS5PR 01-01 02:45
PROVIDERS: ADMIT Internal Medicine; ATTEND Internal Medicine
DX: R13.19 Other dysphagia (principal); E87.1 Hypo-osmolality and hyponatremia; D64.9 Anemia, unspecified; I10 Essential (primary) hypertension; E78.5 Hyperlipidemia, unspecified; K21.9 Gastro-esophageal reflux disease without esophagitis; E87.6 Hypokalemia; Z79.82 Long term (current) use of aspirin; Z79.899 Other long term (current) drug therapy; Z88.0 Allergy status to penicillin; Z88.2 Allergy status to sulfonamides; K57.30 Diverticulosis of large intestine without perforation or abscess without bleeding; Z86.73 Personal history of transient ischemic attack (TIA), and cerebral infarction without residual deficits; N40.0 Benign prostatic hyperplasia without lower urinary tract symptoms

== ENCOUNTER → 2023-01-11 | Outpatient (REF) | payer MEDICARE, BC ==
[~2023-01-11] MED LIST changes: +ACET-683 PO
== END ==
LOC: M SMT 17:27
PROVIDERS: ATTEND Physician Assistant
DX: Z85.46 Personal history of malignant neoplasm of prostate (principal)